=== PATIENT | male | born 1985 | race Caucasian/White ===

== ENCOUNTER 2022-02-02 21:19 | Emergency (ER) | payer SELFPAY ==
[2022-02-02] VITALS (16 sets, daily range): BP systolic 119–132; BP diastolic 69–82; PULSE 72–101; RESP 9–24; TEMP 36.5–36.8; O2SAT 98–100
--- NOTE | 2022-02-02 21:15 | RT.EKG_ITS ---
APPROVED REPORT Exam: Resting ECG Reason for Exam: ?seizure Patient Location: E HR:78 bpm ECG Measurements Heart Rate 78 AXIS ME 148 P 40 QRSd 93 QRS 53 QT 366 T 45 QTc 418 Conclusion Sinus rhythm...normal P axis, V-rate 60- 99. Sinus. Normal axis. No STEMI. I have reviewed and interpreted ECG and agree with software generated interpretation.
--- NOTE | 2022-02-02 21:30 | DI.CT_ITS ---
Exam(s) CT HEAD WO EXAM: CT HEAD WO CLINICAL HISTORY: ? seizure TECHNIQUE: COMPARISON: No exams were available for comparison FINDINGS: Noncontrast cranial CT was performed. There is no evidence of acute intracranial hemorrhage, mass ef fect, or midline shift. The ventricular system is normal in appearance. The there is reportedly history of recent onset of seizures. I would note that there is possible are a of focal encephalomalacia versus arachnoid cyst of the medial aspect of the left temporal lobe, giv en the history of seizure, additional evaluation with brain MRI would be requested to evaluate the po ssibility of mesial temporal sclerosis or other focal anatomic abnormality. The orbital and temporal bone structures appear intact. The paranasal sinuses and mastoid air cells are clear. IMPRESSION: Question left temporal lobe anatomic defect versus arachnoid cyst. Correlation with brain MRI recomm ended utilizing ???seizure protocol??? RADIATION DOSE DELIVERED: 729.75mGy.cm Total DLP DATA REPOSITORY: All CT scans at this facility are submitted to the National Radiology Data Registry (NRDR) Dose Index Registry (DIR) with the [employer] (ACR). RADIATION OPTIMIZATION: All CT scans at this facility use at least one of these dose optimization te chniques: automated exposure control; mA and/or kV adjustment per patient size (includes targeted exa ms where dose is matched to clinical indication); or iterative reconstruction.
[2022-02-02 21:47] LABS: Abs Immature Grans 0.07 10^3/uL (0.0-0.06); Absolute Lymphocyte Count 1.42 10^3/uL (1.2-3.4); Basophils % 0.5; Eosinophils % 0.3; HCT 45.9 % (40.0-50.0); HGB 16.2 g/dL (13.5-17.5); Immature Grans % 0.5; Lymphocytes % 9.4; MCH 32.4 pg (27.0-33.0); MCHC 35.3 % (32.0-36.0); MCV 92 fL (80-95); MPV 11.2 fL (8.0-11.0); Monocytes % 4.6; Neutrophils % 84.7; Platelet Count 205 10^3/uL (130-400); RDW 11.4 % (11.8-14.1); RDW-SD 38.5 fL; WBC 15.13 10^3/uL (4.4-10.8)
[2022-02-02 21:48] LABS: Absolute Basophil Count 0.08 10^3/uL (0.0-0.2); Absolute Eosinophil Count 0.05 10^3/uL (0.0-0.7); Absolute Neutrophil Count 12.82 10^3/uL (1.2-6.7)
--- NOTE | 2022-02-02 21:51 | ED.GENADUL_ITS ---
Discharge Plan Disposition Patient Disposition: Home Condition: Stable Discharge Details Clinical Impression: Brief loss of consciousness, Hypomagnesemia Primary Care Provider: Gail,Local ED Provider: Elisha Childs Home Meds and New Rx's Prescriptions: No Action esomeprazole magnesium [Nexium] 40 mg capsule,delayed release(DR/EC) 40 mg PO DAILY montelukast [Singulair] 10 mg tablet 10 mg PO DAILY baclofen 5 mg tablet 5 mg PO DAILY naproxen sodium [Aleve] 220 mg capsule 220 mg PO BID PRN Discharge Instructions Instructions: Hypomagnesemia (ED), New-Onset Seizure in Adults (ED) Additional Instructions: As we discussed, I am concerned that you may have suffered a syncopal episode associated with your elevated heart rate after smoking marijuana. Alternatively, this could have been a true seizure but is difficult to say at this time given your quick recovery and lack of symptoms here. As we discussed, there is a questionable area of scarring on your CT scan which may require MRI in the future. This will be described by neurology physician. Please abstain from further marijuana use. Please do not drive until you are cleared by neurology. Please try to keep yourself safe and stay out of bodies of water, avoid high risk activities that may cause injury to if you were to suffer from another event. Please encourage hydration. Encourage brain rest. I have asked our care management team to call you on Saturday to schedule follow-up appointment with neurology. We are sending you home with copy of your imaging in the event that the neurology follow-up is not with one of our local neurology clinicians. If you develop fever/chills, headaches, recurrent episodes, focal area of weakness or other new/worsening symptom please seek care urgently once again. Stand Alone Forms: Work Release Discharge Data Discharge Date/Time-TO BE ENTERED AT DEPARTURE: 02/03/22 00:00 Medical Decision Making Patient is a pleassant 37 year old male, brought in via EMS, with c/c of possible seizure. He states that he was sitting in his significant other's car, feeling well leading up to event, when he had what was described as 30 seconds of generalized shaking while he was unconscious. Signficant other reports about 1min of confusion after seizure. He states this happened just a few minutes after smoking marijuana. States that he has not had issue like this previously. Does not typically smoke. Did have lightheaded sensation prior to the event. No CP or palpitations. Has on a Apple watch which did show a brief spike in HR that last short period of itme and then resolved. Did not fall, was seated during event. No head trauma recently or with the event. Denies recent fevers/chills, ALEMAN, visual changes, neck pain/stiffness, rash, change in bowel or bladder habits. No recent medication changes. On exam, patient appear nontoxic. He has normal ENT exam with no tongue biting. Was not incontinent. No evidence of trauma. Neuro exam is intact at this time. No nuchal rigidity or evidence of bacterial infection. Patient appears to be back to baseline, good mentation and intact exam. With thee very brief postical period and prodromal symptoms, I am wondering if this was more of a syncopal episode and may have been associated with his use of marijuana. However, as there was concern for seizure and we cannot otherwise r/o, I do feel that evaluation for possible first time seizure would be appropriate. Will also consider syncopal causes. Description more conssistent with vagal mediated syncope over cardiac. ECG WNL. No evidence of ischemia or cardiac causes of syncope FINDINGS: Brain: The IACs are grossly normal. No extra-axial fluid collections. No evidence of acute intracranial hemorrhage. No CT evidence of large territory acute or subacute intracranial ischemia/infarct. No intracranial mass lesions. No midline shift or herniation. No focal cortical abnormalities suspicious for focal cortical dysplasia are evident by CT. No gross cole matter heterotopia is identified. Asymmetric cortical atrophy in the left mesial temporal distribution may indicate changes of mesial temporal sclerosis, consider nonemergent pre and postcontrast MRI for further characterization. Cerebral ventricles: Ventricles normal. Pituitary gland and sella: The sella is grossly normal. Paranasal sinuses: Visualized paranasal sinuses are clear. Mastoid air cells: Visualized mastoid air cells are clear. Orbital cavities: Visualized orbital contents demonstrate no acute abnormality. Bones/joints: The calvarium and visualized facial bones are intact. Soft tissues: The scalp and visualized soft tissues demonstrate no acute abnormality. Vasculature: The visualized major intracranial arterial segments demonstrate no gross abnormality by noncontrast CT. No asymmetric vascular hyperdensities suggestive of thrombosis are identified. Other findings: Hendricks-white differentiation is well maintained. CBC signficant for elevated WBC. This is more likely associated with stress response, no evidence to suggest infectious etiology. Mag slightly low but electrolytes otherwise wNL. Will replenish. Discussed findings, including the insidental findings on CT. Advised he will need MRI which can be arranged as outpatient. Will refer to neurology for continued management and evaluation of possible seizure. Advised not to drive. Advised on return precatuions. advised he abstain from marijuana. All of his questions and concerns were addressed, he si in agreement with this plan. Sign Out No HPI General Date/Time Provider Initiated Documentation: 02/02/22 21:24 . Limitations to Documentation: no limitations . Information obtained by: patient, EMS and RN notes reviewed . History of Present Illness 37 year old M presents to the emergency department with the chief complaint of seizure/syncopal episode witnessed by signficant other, currently asymptoma, described as severe, Patient started experiencing this minute(s) and it has been now resolved (witnessed event x 30 second). No relieving factors improve symptom(s), Other factors that worsen symptoms (occured a few minutes after smoking marijuana) . Patient notes seizure; denies confusion, chest pain, cough, fever/chills, headaches, nausea/vomiting, rash and shortness of breath. Patient did receive the following treatments prior to arrival, none Related Data Home Medications Medication Instructions Recorded Confirmed baclofen 5 mg tablet 5 mg PO DAILY 02/15/22 02/15/22 esomeprazole magnesium 40 mg 40 mg PO DAILY 02/15/22 02/15/22 capsule,delayed release (Nexium) montelukast 10 mg tablet 10 mg PO DAILY 02/15/22 02/15/22 (Singulair) naproxen sodium 220 mg capsule 220 mg PO BID PRN 02/15/22 02/15/22 (Aleve) Allergies Allergy/AdvReac Type Severity Reaction Status Date / Time egg yolk AdvReac Anaphylaxis Verified 02/15/22 13:28 peanuts AdvReac Severe Anaphylaxis Uncoded 02/15/22 13:28 General Stated Complaint: Seizure CLARE: 3 Review of Systems Constitutional Constitutional: Reports as per HPI, Denies chills, Reports fatigue, Denies fever(s), Denies frequent falls and Denies weakness Eyes Eyes: Reports as per HPI, Denies blurry vision, Denies change in vision and Reports photophobia ENT Ears, Nose, Mouth, and Throat: Denies vertigo and Denies neck pain Cardiovascular Cardiovascular: Reports as per HPI, Denies chest pain, Denies radiating jaw, n markus or arm pain, Denies dyspnea and Denies dyspnea on exertion Respiratory Respiratory: Reports as per HPI, Denies chest congestion, Denies cough, Denies dyspnea and Denies dyspnea on exertion Gastrointestinal Gastrointestinal: Reports as per HPI, Denies abdominal pain, Denies change in bowel habits, Denies nausea and Denies vomiting Genitourinary Genitourinary: Reports system reviewed and no additional complaints, except as documented (denies change in urinary habits) Musculoskeletal Musculoskeletal: Reports as per HPI, Denies back pain, Denies myalgias, Denies muscle cramps, Denies neck pain and Denies numbness Integumentary/Breasts Skin/Breast: Reports as per HPI and Denies rash Neurologic Neurologic: Reports as per HPI, Denies abnormal movements, Denies abnormal speech, Denies behavioral changes, Denies confusion, Denies vertigo, Denies frequent falls, Denies localized weakness, Denies numbness, Denies sensory deficit and Denies weakness Psychiatric Psychiatric: Denies behavioral changes and Denies confusion Endocrine Endocrine: Reports fatigue PFSH All Active Problems Seizure (Acute) Medical History Asthma Back pain GERD (gastroesophageal reflux disease) Surgical History No pertinent past surgical history Family History Father Hypertension Mother Hypertension Social History Smoking/Tobacco Use Status: Current every day Tobacco Type: e-cigarettes Tobacco: How many years used: 10 Smokeless tobacco user: dissolvable tobacco Smoking risk assessment performed?: Yes Alcohol Intake: current Alcohol Intake frequency: a few times a month Alcohol type: wine Drug use: Rarely Substance use type: marijuana Household members: none Number of Children: 0 current occupation: Travel Nurse Do you feel safe at home: Yes Do you feel safe in your relationship?: Yes Exam Const General: cooperative, healthy appearing, comfortable, no acute distress, well developed, well groomed and anxious Nutritional Appearance: average body habitus and well nourished Orientation: alert, awake and oriented x3 [facility] Head: normal to inspection, no palpable skull fracture, normocephalic and atraumatic Ears: hearing grossly normal bilaterally, external ears normal and TM's normal bilaterally General nose exam: external nose normal Mouth: oral mucosae normal and moist mucous membranes Throat: posterior oropharynx normal Eyes General: appearance normal, both eyes and all related structures Alignment and Position: alignment normal Periorbital: periorbital findings normal Eyelids: eyelids normal Sclera: sclerae normal Cornea: corneas normal Pupils: PERRL EOM: EOM intact bilaterally Neck Neck: normal visual inspection, full ROM, no lymphadenopathy and no meningeal signs Resp Effort & Inspection: normal respiratory effort, able to speak in complete sentences and no respiratory distress Auscultation: clear to auscultation bilaterally, no rales, no rhonchi and no wheezes Cardio Rate: regular rate Rhythm: regular rhythm Heart Sounds: S1 normal and S2 normal GI Inspection: normal to inspection and non-distended Palpation: soft, no hepatosplenomegaly, not firm, no guarding, not rigid and nontender Percussion: normal to percussion Auscultation: normal bowel sounds Back/Spine/Pelvis Cervical Spine: normal cervical lordosis and cervical ROM normal Skin General skin exam: no rashes or lesions noted Neuro General: patient alert, patient awake and patient oriented x3 Cranial Nerves: CN's II-XI intact bilaterally Cognition: normal cognition Speech: speech normal Gait: normal gait Motor: muscle tone normal throughout, strength 5/5 throughout, no pronator drift, no movement abnormalities noted and no fasciculations Sensory Exam: no sensory deficits noted DTR's: Rt Triceps: 2+, Lt Triceps: 2+, Rt Biceps: 2+, Lt Biceps: 2+, Rt Brachioradialis: 2+, Lt Brachioradialis: 2+, Rt Patellar: 2+ and Lt Patellar: 2+ Coordination: [id number] test normal and [id number]-[id number] test normal Extrem General: normal to inspection, capillary refill normal, no pedal edema and no calf tenderness Psych Appearance: grossly normal and well kempt Mental Status: mental status grossly normal Speech and Movement: speech and movement normal Course Vital Signs Vital signs: Vital Signs Temperature 36.8 C 02/02/22 21:23 Pulse 101 H 02/02/22 21:23 Respiratory Rate 16 02/02/22 21:23 Blood Pressure 130/73 02/02/22 21:23 Pulse Oximetry 99 02/02/22 21:23 Temperature 36.8 C 02/02/22 21:23 Temperature Source Temporal Artery Scan 02/02/22 21:23 Pulse 101 H 02/02/22 21:23 Respiratory Rate 16 02/02/22 21:23 Respiratory Effort Non-Labored 02/02/22 21:35 Respiratory Depth Normal 02/02/22 21:35 Respiratory Pattern Normal 02/02/22 21:35 Blood Pressure 130/73 02/02/22 21:23 Blood Pressure Position Supine 02/02/22 21:23 Pulse Oximetry 99 02/02/22 21:23 Oxygen Delivery Method Room Air 02/02/22 21:23 Oxygen Flow Rate 0 02/02/22 21:23 Pain Level 0 02/02/22 21:23 Comment 02/02/22 21:23 Lab/Test Results Lab/Test Results: Laboratory Tests Range/Units 02/02/22 21:20 WBC (4.4-10.8) 10^3/uL 15.13 H RBC (4.36-5.78) 10^6/uL 5.00 Hgb (13.5-17.5) g/dL 16.2 Hct (40.0-50.0) % 45.9 MCV (80-95) fL 92 MCH (27.0-33.0) pg 32.4 MCHC (32.0-36.0) % 35.3 RDW (11.8-14.1) % 11.4 L Plt Count (130-400) 10^3/uL 205 MPV (8.0-11.0) fL 11.2 H Immature Gran % 0.5 Neutrophils % 84.7 Lymphocytes % 9.4 Monocytes % 4.6 Eosinophils % 0.3 Basophils % 0.5 Nucleated RBC % (0.0-0.3) % 0.0 Absolute Neutrophils (1.2-6.7) 10^3/uL 12.82 H Absolute Lymphocytes (1.2-3.4) 10^3/uL 1.42 Absolute Monocytes (0.1-0.8) 10^3/uL 0.70 Absolute Eosinophils (0.0-0.7) 10^3/uL 0.05 Absolute Basophils (0.0-0.2) 10^3/uL 0.08 PAWSS Have you Been Recently Intoxicated or Drunk Within the Last 30 days?: No Have you Ever Experienced Previous Episodes of Alcohol Withdrawal?: No Have you ever Experienced Withdrawal Seizures?: No Have you ever Experienced Delirium Tremens(DT)s?: No Have you ever undergone Alcohol Rehabilitation Treatment (i.e, inpt ot outpatient treatment programs)?: No Have you ever Experienced Blackouts?: No Have you ever Combined Alcohol with other Downers within the last 90 days?: No Have you ever Combined Alcohol with any other Substance of Abuse during the last 90 days?: No Positive Blood Alcohol level on Presentation? [PCS.BAL]: No Evidence of Increased Autonomic Activity (i.e. HR>120, tremor, sweating, agitation, nausea)?: No Result: 0
[2022-02-02 22:14] LABS: ALT 27 U/L (16-63); AST 11 U/L (15-37); Albumin 4.1 g/dL (3.4-5.0); Alkaline Phosphatase 50 U/L (46-116); Anion Gap 8.2 mmol/L (3-11); BUN 19 mg/dL (7-18); Bilirubin, Total 1.4 mg/dL (0.2-1.0); CO2 28.8 mmol/L (21.0-32.0); CREATININE 1.1 mg/dL (0.70-1.30); Calcium 8.9 mg/dL (8.5-10.1); Chloride 102 mmol/L (98-107); Estimated GFR 89.78 (mL/min/1.73m2); Glucose 178 mg/dL (74-106); Magnesium 1.6 mg/dL (1.8-2.4); Potassium 3.5 mmol/L (3.5-5.1); Sodium 139 mmol/L (136-145); Total Protein 6.8 g/dL (6.4-8.2)
--- NOTE | 2022-02-02 23:18 | DI.VRAD_ITS ---
PROCEDURE INFORMATION: Exam: CT Head Without Contrast Exam date and time: 02/02/2022 11:00 PM Age: 37 years old Clinical indication: Other: ? Seizure TECHNIQUE: Imaging protocol: Computed tomography of the head without contrast. Radiation optimization: All CT scans at this facility use at least one of these dose optimization techniques: automated exposure control; mA and/or kV adjustment per patient size (includes targeted exams where dose is matched to clinical indication); or iterative reconstruction. COMPARISON: No relevant prior studies available. FINDINGS: Brain: The IACs are grossly normal. No extra-axial fluid collections. No evidence of acute intracranial hemorrhage. No CT evidence of large territory acute or subacute intracranial ischemia/infarct. No intracranial mass lesions. No midline shift or herniation. No focal cortical abnormalities suspicious for focal cortical dysplasia are evident by CT. No gross cole matter heterotopia is identified. Asymmetric cortical atrophy in the left mesial temporal distribution may indicate changes of mesial temporal sclerosis, consider nonemergent pre and postcontrast MRI for further characterization. Cerebral ventricles: Ventricles normal. Pituitary gland and sella: The sella is grossly normal. Paranasal sinuses: Visualized paranasal sinuses are clear. Mastoid air cells: Visualized mastoid air cells are clear. Orbital cavities: Visualized orbital contents demonstrate no acute abnormality. Bones/joints: The calvarium and visualized facial bones are intact. Soft tissues: The scalp and visualized soft tissues demonstrate no acute abnormality. Vasculature: The visualized major intracranial arterial segments demonstrate no gross abnormality by noncontrast CT. No asymmetric vascular hyperdensities suggestive of thrombosis are identified. Other findings: Hendricks-white differentiation is well maintained. IMPRESSION: 1. No acute intracranial process. No intracranial hemorrhage or mass effect. 2. 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 Consider nonemergent evaluation with pre and postcontrast MRI of the brain for greater specificity. Dictated and Authenticated by: Zane Cannon MD. Ordering:MAREK Tello MD
[2022-02-02 23:55] LABS: Bilirubin Negative (Negative); Blood Negative (Negative); Clarity Clear (Clear); Glucose 100 mg/dL (Negative); Ketones Negative (Negative); Leukocyte Esterase Negative (Negative); Nitrite Negative (Negative); Urobilinogen 0.2 EU/dL (Up TO 0.2)
[2022-02-03 00:13] LABS: *AMPHETAMINES SCREEN URINE Negative (Negative); *BARBITURATES SCREEN URINE Negative (Negative); *BENZODIAZEPINES SCREEN URINE Negative (Negative); Cannabinoids THC Positive (Negative); Cocaine Screen,Urine Negative (Negative); METHADONE URINE SCREEN Negative (Negative); OPIATES URINE SCREEN Negative (Negative)
[2022-02-03 00:15] LABS: Tricyclic Antidepressants Negative (Negative)
--- NOTE | 2022-02-03 00:48 | NUR.NOTE ---
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 The provider asked that Care Management call the patient as he is paying out of pocket and to determine where he would like to be seen in follow up.Nursing Note:
--- NOTE | 2022-02-06 15:32 | PDOC.ERCMACT ---
- If Service Date Differs Date of service: 02/06/22 Time of Service: 15:32 Care Management Activity Note Peyman is seen in the ED for new onset seizures. At the request of ED provider, SHILOH telephones Peyman to inquire where he would like referrals sent. He requests that referrals be faxed to both [facility]rology and [facility] Neurology.
== END 2022-02-03 | disposition home or self-care (01) ==
LOC: ER 02-03 00:17
PROVIDERS: Emergency Provider Physician Assistant
DX: E83.42 Hypomagnesemia (principal); R55 Syncope and collapse; D72.829 Elevated white blood cell count, unspecified; J45.909 Unspecified asthma, uncomplicated
CPT/HCPCS: 80053; 80307; 93005; 99284; 70450; 81003; 83735; 84443; 85025; 93010; 99285

== ENCOUNTER 2022-03-01 04:49 | Outpatient (CLI) | payer SELFPAY ==
--- NOTE | 2022-03-08 11:14 | PDOC.EEG_ITS ---
Neurology EEG EEG: [facility] Department of Neurology LONG-TERM AMBULATORY EEG REPORT Date of Recordin03/01/22 at 13:17:19 to 03/02/22 at 14:16:07 Interpreting Physician: Dr. Kacy Hess PCP/Referring Provider: Dr. Richard Mendez Reason for study: Mr. Su had a single syncopal vs seizure event with noted L temporal abnormalities on brain MRI. Current Medications: Home Medications Medication Instructions Recorded Confirmed Type baclofen 5 mg tablet 5 mg PO DAILY 02/15/22 02/15/22 History esomeprazole magnesium 40 mg 40 mg PO DAILY 02/15/22 02/15/22 History capsule,delayed release (Nexium) montelukast 10 mg tablet 10 mg PO DAILY 02/15/22 02/15/22 History (Singulair) naproxen sodium 220 mg capsule 220 mg PO BID PRN 02/15/22 02/15/22 History (Aleve) METHODS: An 18-channel digitized electroencephalogram was recorded in the ambulatory setting with video. The 10/20 international system of electrode placement was used and bipolar and referential electrode montages were recorded. In addition to EEG the patient was monitored for EKG and by video. Activation procedures of photic stimulation and hyperventilation were performed if applicable. The duration of the recording was ~25 hours. DESCRIPTION OF EEG: Waking background activity: During maximal wakefulness a 9-Hz posterior background rhythm was present which was well-modulated, symmetrical, reactive to eye opening, and of moderate voltage. Faster frequencies were present in the bilateral anterior head regions. There was a normal anterior-posterior voltage gradient. Drowsy and sleeping background activity: During drowsiness, there was attenuation of the posterior dominant background rhythm and vertex waves. Normal stage II and III sleep was present with symmetrical sleep spindles, K- complexes, and vertex waves with slowing of the background rhythm to delta/theta frequencies. REM sleep manifested by rapid lateral eye movements and faster background rhythms was recorded. Arousal was unremarkable. Interictal abnormalities: none. Ictal findings: No events recorded. Activating Procedures: Photic stimulation was performed which produced no posterior driving response. Hyperventilation was performed with moderate effort and produced no physiological slowing of the background. EKG: EKG revealed normal sinus rhythm. INTERPRETATION: This long-term EEG is normal during the awake and sleep states as well as during the activation procedures. PRIOR EEG: none CLINICAL CORRELATION: No focal regions of cerebral dysfunction or epileptiform activity was present. Epilepsy remains a clinical diagnosis and a normal EEG does not rule out epilepsy. Clinical correlation is advised. Kacy Hess MD
== END 2022-03-01 04:50 | disposition home or self-care (01) ==
LOC: RT 04:50
PROVIDERS: Visit Provider Psychiatry & Neurology Neurology
DX: R41.89 Other symptoms and signs involving cognitive functions and awareness (principal)
CPT/HCPCS: 95714

== ENCOUNTER 2023-02-13 10:27 | Outpatient (CLI) | payer SELFPAY ==
[2023-02-13 12:24] LABS: Abs Immature Grans 0.02 10^3/uL (0.0-0.06); Absolute Basophil Count 0.06 10^3/uL (0.0-0.2); Absolute Eosinophil Count 0.08 10^3/uL (0.0-0.7); Absolute Neutrophil Count 10.07 10^3/uL (1.2-6.7); Basophils % 0.5; Eosinophils % 0.7; HGB 16.1 g/dL (13.5-17.5); Immature Grans % 0.2; Lymphocytes % 6.4; MCH 31.9 pg (27.0-33.0); MCV 91 fL (80-95); MPV 11.5 fL (8.0-11.0); Monocytes % 6.8; Neutrophils % 85.4; Platelet Count 161 10^3/uL (130-400); RBC 5.04 10^6/uL (4.36-5.78); RDW 11.8 % (11.8-14.1); RDW-SD 39.4 fL; WBC 11.79 10^3/uL (4.4-10.8)
[2023-02-13 12:27] LABS: Anion Gap 7.1 mmol/L (3-11); BUN 10 mg/dL (7-18); CO2 29.9 mmol/L (21.0-32.0); CREATININE 1.1 mg/dL (0.70-1.30); Calcium 9.3 mg/dL (8.5-10.1); Chloride 103 mmol/L (98-107); Estimated GFR 89.22 (mL/min/1.73m2); Glucose 135 mg/dL (74-106); Potassium 4.2 mmol/L (3.5-5.1); Sodium 140 mmol/L (136-145)
[2023-02-13 12:29] LABS: Absolute Lymphocyte Count 0.75 10^3/uL (1.2-3.4)
[2023-02-13 12:54] LABS: D-Dimer 167 ng/mlFEU (<500)
== END 2023-02-13 10:28 | disposition home or self-care (01) ==
LOC: LOS 10:27
PROVIDERS: Visit Provider Nurse Practitioner Family
DX: J02.9 Acute pharyngitis, unspecified (principal)
CPT/HCPCS: 36415; 80048; 85025; 85379

== ENCOUNTER 2023-09-09 15:33 | Outpatient (REF) | payer SELFPAY ==
[2023-09-10 19:47] LABS: HIV-1/2 Ag & Ab Screen Negative (Negative)
[2023-09-10 19:48] LABS: Hepatitis C Ab w Rflx HCV PCR Negative (Negative)
[2023-09-11 10:12] LABS: HSV Type 1 Ab, IgG Positive (Negative); HSV Type 2 Ab, IgG Negative (Negative)
[2023-09-11 12:14] LABS: Syphilis Serology (RPR) Negative (Negative)
[2023-09-11 14:29] LABS: Chlamydia Result Negative (Negative); GC Result Negative (Negative)
== END 2023-09-09 15:34 | disposition home or self-care (01) ==
LOC: LBN 15:33
PROVIDERS: Visit Provider Nurse Practitioner Family
DX: Z20.2 Contact with and (suspected) exposure to infections with a predominantly sexual mode of transmission (principal); Z11.3 Encounter for screening for infections with a predominantly sexual mode of transmission
CPT/HCPCS: 86803; 87389; 87491; 87591; 86592; 86695; 86696

== ENCOUNTER 2023-12-19 10:12 | Emergency (ER) | payer SELFPAY ==
[2023-12-19] VITALS (13 sets, daily range): BP systolic 128–153; BP diastolic 62–113; PULSE 66–80; RESP 16–20; TEMP 36.9; O2SAT 94–99
[2023-12-19 10:34] LABS: Abs Immature Grans 0.05 10^3/uL (0.0-0.06); Absolute Eosinophil Count 0.05 10^3/uL (0.0-0.7); Absolute Monocyte Count 0.51 10^3/uL (0.1-0.8); Basophils % 0.5 %; Eosinophils % 0.4 %; HGB 16.2 g/dL (13.5-17.5); Immature Grans % 0.4 %; Lymphocytes % 13.2 %; MCHC 35.2 % (32.0-36.0); MCV 91 fL (80-95); MPV 10.3 fL (8.0-11.0); Neutrophils % 81.5 %; Platelet Count 214 10^3/uL (130-400); RBC 5.07 10^6/uL (4.36-5.78); RDW 11.2 % (11.8-14.1); RDW-SD 37.5 fL; WBC 12.76 10^3/uL (4.4-10.8)
[2023-12-19 10:39] LABS: Absolute Basophil Count 0.06 10^3/uL (0.0-0.2); Absolute Lymphocyte Count 1.68 10^3/uL (1.2-3.4)
--- NOTE | 2023-12-19 10:45 | DI.CT_ITS ---
Exam(s) CT RENAL COLIC WO EXAM: CT RENAL COLIC WO CLINICAL HISTORY: bilateral flank pain since 730, prior renal stones. TECHNIQUE: Imaging Protocol: Axial computed tomography images with coronal and sagittal reformatted images were created and reviewed. COMPARISON: No exams were available for comparison FINDINGS: Lung Bases: Normal where visualized. Small hiatal hernia. Liver: Normal density. No measurable mass. Gallbladder and biliary tract: No radiodense calculus. No biliary ductal dilation. Pancreas: No abnormal calcifications or inflammatory process. Spleen: Normal size. Kidneys: Normal size, contour and axis.There are 2 stones in the right upper ureter, the more proxima l measuring 7 millimeters. The 2nd stone is located approximately 1 cm distal which measures 5 pretty meters. There is [id number] right hydronephrosis. Additional punctate calculi are noted bilat erally. No masses seen. Adrenal glands: No mass is seen. Lymph nodes: Within normal limits. Vasculature: Abdominal aorta non-dilated. Bladder:No stone. No gross wall thickening. No evidence of mass. Bowel: No obstruction. No bowel wall thickening. Normal appendix. Peritoneal cavity: No ascites.No free air. No focal collection. No mesenteric inflammatory response. Reproductive organs: Within normal limits. Bones: Unremarkable for age. Soft Tissues: Small left fat containing inguinal hernia. IMPRESSION: Two stones in the upper right ureter measuring 7 and 5 millimeters causing [id number] right hyd ronephrosis. A few additional bilateral punctate nonobstructing renal calculi are noted. RADIATION DOSE DELIVERED: 500.23mGy.cm Total DLP 500.23mGy.cm Total DLP DATA REPOSITORY: All CT scans at this facility are submitted to the National Radiology Data Registry (NRDR) Dose Index Registry (DIR) with the [employer] (ACR). RADIATION OPTIMIZATION: All CT scans at this facility use at least one of these dose optimization te chniques: automated exposure control; mA and/or kV adjustment per patient size (includes targeted exa ms where dose is matched to clinical indication); or iterative reconstruction.
[2023-12-19 10:46] LABS: Lipase 34 U/L (16-77)
--- NOTE | 2023-12-19 10:47 | W.ED.GENAD ---
Discharge Plan Disposition Patient Disposition: Home Condition: Stable Discharge Details Clinical Impression: Ureteral calculus, right Primary Care Provider: None,None ED Provider: Antonio Gonzalez Home Meds and New Rx's Prescriptions: New tamsulosin [Flomax] 0.4 mg capsule 0.4 mg PO DAILY Qty: 30 0RF Continued esomeprazole magnesium [Nexium] 40 mg capsule,delayed release(DR/EC) 40 mg PO DAILY montelukast [Singulair] 10 mg tablet 10 mg PO DAILY naproxen sodium [Aleve] 220 mg capsule 220 mg PO BID PRN albuterol-budesonide 90-80 mcg/actuation HFA aerosol inhaler 2 inh inhalation TID PRN Rx Instructions: as a single dose; may repeat up to 6 doses per day (12 inhalations) No Action prochlorperazine maleate 5 mg tablet 5 mg PO ONCE PRN hydrocodone-acetaminophen 5-325 mg tablet 1 tab PO Q6H MDD 4 PRN (Reason: pain) Qty: 20 0RF Discharge Instructions Instructions: How to Strain Your Urine, Kidney Stone, Adult ED Additional Instructions: Take ibuprofen or Aleve for pain. Dose according to label. Please take acetaminophen (tylenol) - 650mg every 6 hours by mouth as needed for pain. Take morphine IR as prescribed only for severe pain that is refractory to Tylenol and ibuprofen or Aleve. Please follow-up with urology. Call to schedule follow-up appointment. Please contact your primary care physician to arrange follow-up. Return to the ER immediately for any worsening or new concerning symptoms. Referrals: David Warren MD [ [facility] STAFF PHYSICIAN] - Discharge Data Discharge Date/Time-TO BE ENTERED AT DEPARTURE: 12/19/23 15:37 HPI General Mode of arrival: EMS. Date/Time Provider Initiated Documentation: 12/19/23 10:20. Limitations to Documentation: no limitations. Information obtained by: patient and EMS. HPI Narrative: 38-year-old male with history of renal stones here with bilateral flank pain that started suddenly at 730 this morning. Pain is severe and feels like prior renal stones that he had about 4 years ago. Patient was given IV acetaminophen as well as IV Zofran by EMS. Patient continues to have severe pain. No associated fever. No dysuria. Related Data Home Medications ?Medication ?Instructions ?Recorded ?Confirmed esomeprazole magnesium 40 mg 40 mg PO DAILY 02/15/22 12/26/23 capsule,delayed release (Nexium) montelukast 10 mg tablet 10 mg PO DAILY 02/15/22 12/26/23 (Singulair) naproxen sodium 220 mg capsule 220 mg PO BID PRN 02/15/22 12/26/23 (Aleve) albuterol 90 mcg-budesonide 80 2 inh inhalation TID PRN 01/11/23 12/26/23 mcg/actuation HFA aerosol inhaler tamsulosin 0.4 mg capsule (Flomax) 0.4 mg PO DAILY #30 caps 12/19/23 12/26/23 hydrocodone 5 mg-acetaminophen 325 1 tab PO Q6H PRN pain #20 tabs 12/24/23 12/26/23 mg tablet prochlorperazine maleate 5 mg 5 mg PO ONCE PRN 12/24/23 12/26/23 tablet Previous Rx's ?Medication ?Instructions ?Recorded tamsulosin 0.4 mg capsule (Flomax) 0.4 mg PO DAILY #30 caps 12/19/23 hydrocodone 5 mg-acetaminophen 325 1 tab PO Q6H PRN pain #20 tabs 12/24/23 mg tablet Allergies Allergy/AdvReac Type Severity Reaction Status Date / Time egg yolk AdvReac Anaphylaxis Verified 12/26/23 13:44 peanuts AdvReac Severe Anaphylaxis Uncoded 12/26/23 13:44 General Stated Complaint: Abd Prob CLARE: 3 Review of Systems All systems reviewed & are unremarkable except as noted in HPI and below Constitutional Constitutional: Denies fever(s) Genitourinary Genitourinary: Reports as per HPI Exam Const General: cooperative and uncomfortable [facility] Head: normocephalic and atraumatic Mouth: moist mucous membranes Eyes Conjunctivae: normal conjunctivae Sclera: normal sclerae EOM: EOM intact bilaterally Neck Neck: trachea midline and supple Resp Auscultation: clear to auscultation bilaterally, no rales, no rhonchi and no wheezes Cardio Jugular venous pressure: no JVD Rate: regular rate and not tachycardic Rhythm: regular rhythm GI Palpation: soft, not firm, no guarding, no masses, not rigid and nontender Skin General skin exam: no rashes or lesions noted Neuro General: patient alert, patient awake, patient oriented x3 and tone normal Extrem General: no edema Psych Appearance: grossly normal Mental Status: mental status grossly normal Speech and Movement: speech and movement normal Course Vital Signs Vital signs: Vital Signs Temperature 36.9 C 12/19/23 10:14 Pulse 80 12/19/23 10:14 Respiratory Rate 20 12/19/23 10:14 Blood Pressure 153/94 H 12/19/23 10:14 Pulse Oximetry 99 12/19/23 10:14 Temperature 36.9 C 12/19/23 10:16 Pulse 80 12/19/23 10:16 Respiratory Rate 20 12/19/23 10:16 Respiratory Effort Normal 12/19/23 10:16 Blood Pressure 153/94 H 12/19/23 10:16 Blood Pressure Position Sitting 12/19/23 10:16 Pulse Oximetry 99 12/19/23 10:16 Oxygen Delivery Method Room Air 12/19/23 10:16 Oxygen Flow Rate 0 12/19/23 10:16 Pain Level 10 12/19/23 10:16 Lab/Test Results Lab/Test Results: Laboratory Tests Range/Units 12/19/23 10:25 WBC (4.4-10.8) 10^3/uL 12.76 H RBC (4.36-5.78) 10^6/uL 5.07 Hgb (13.5-17.5) g/dL 16.2 Hct (40.0-50.0) % 46.0 MCV (80-95) fL 91 MCH (27.0-33.0) pg 32.0 MCHC (32.0-36.0) % 35.2 RDW (11.8-14.1) % 11.2 L Plt Count (130-400) 10^3/uL 214 MPV (8.0-11.0) fL 10.3 Immature Gran % % 0.4 Neutrophils % % 81.5 Lymphocytes % % 13.2 Monocytes % % 4.0 Eosinophils % % 0.4 Basophils % % 0.5 Nucleated RBC % (0.0-0.3) % 0.0 Absolute Neutrophils (1.2-6.7) 10^3/uL 10.40 H Absolute Lymphocytes (1.2-3.4) 10^3/uL 1.68 Absolute Monocytes (0.1-0.8) 10^3/uL 0.51 Absolute Eosinophils (0.0-0.7) 10^3/uL 0.05 Absolute Basophils (0.0-0.2) 10^3/uL 0.06 Medical Decision Making 1049-- 38-year-old male with history of renal stones, here with severe bilateral flank pains at 730 this morning concern for acute ureteral stone. Consider obstructive process. Will give toradol IV and dilaudid IV. Plan for CT of the abdomen pelvis to assess for acute surgical pathology. 1149 -- CT renal interpreted by radiology: Two stones in the upper right ureter measuring 7 and 5 millimeters causing [id number] right hydronephrosis. A few additional bilateral punctate nonobstructing renal calculi are noted. Labs review. UA pending. Patient reassessed and pain improved with analgesic. -- Will hold awaiting urinalysis, patient had recurrent pain. He is given another Dilaudid 1 mg IV. --I spoke with Ankita Hamm, nurse practitioner urology, discussed ED presentation course, she recommends discharge on Flomax with plan for close outpatient follow-up with urology. 1500 --patient reassessed and feeling better, comfortable with discharge. Urinalysis reviewed and is not consistent with UTI. Usual and customary discharge instructions were reviewed. Quality:SDOH Health Related Social Needs: Health related social needs housing instability, housed, with risk of homelessness(Z59.811) PFSH All Active Problems Ureteral calculus, right (Acute) Seizure (Acute) Medical History Asthma GERD (gastroesophageal reflux disease) Back pain Surgical History No pertinent past surgical history Family History Father Hypertension Mother Hypertension Social History Smoking/Tobacco Use Status: Current every day Tobacco Type: e-cigarettes Tobacco: How many years used: 10 Smoking risk assessment performed?: Yes Alcohol Intake: current Alcohol Intake frequency: a few times a month Alcohol type: wine Drug use: Current Sobriety Substance use type: former substance user Household members: none Housing: house Number of Children: 0 current occupation: Travel Nurse Do you feel safe at home: Yes Do you feel safe in your relationship?: Yes
[2023-12-19 10:51] LABS: ALT 49 U/L (16-63); AST 15 U/L (15-37); Alkaline Phosphatase 54 U/L (46-116); Anion Gap 7.9 mmol/L (3-11); BUN 16 mg/dL (7-18); Bilirubin, Total 0.82 mg/dL (0.2-1.0); CO2 26.1 mmol/L (21.0-32.0); CREATININE 1.2 mg/dL (0.70-1.30); Calcium 9.3 mg/dL (8.5-10.1); Chloride 106 mmol/L (98-107); Estimated GFR 80.38 (mL/min/1.73m2); Glucose 136 mg/dL (74-106); Magnesium 1.9 mg/dL (1.8-2.4); Potassium 3.8 mmol/L (3.5-5.1); Sodium 140 mmol/L (136-145)
[2023-12-19] MEDS: Ketorolac 30 MG/ML VIAL IVP (10:52)
[2023-12-19] MEDS: HYDROmorphone 2 MG/ML SYR 1 MG IVP ×2 (10:52→14:00)
[2023-12-19] MEDS: Tamsulosin 0.4 MG CAPCR PO (12:01)
[2023-12-19 14:18] LABS: Bilirubin Small (Negative); Blood Large (Negative); Clarity Sl Cloudy (Clear); Glucose Negative (Negative); Ketones Trace mg/dL (Negative); Leukocyte Esterase Negative (Negative); Nitrite Negative (Negative); Specific Gravity >= 1.030 (1.005-1.025); Urobilinogen 0.2 mg/dL (Up to 0.2); pH 5.5 (5-8)
[2023-12-19 14:34] LABS: RBC >50 HPF (0-2); WBC Negative HPF (0-5)
[2023-12-19 14:35] LABS: Bacteria Few HPF (Negative); C & S Indicated? No; Casts Negative LPF (Negative); Crystals Rare Calcium Oxalate HPF (Negative); Epithelial Cells Negative HPF (Negative); Mucus Heavy (Negative); Other Cells Negative (Negative)
== END 2023-12-19 15:37 | disposition home or self-care (01) ==
PROVIDERS: Emergency Provider Student in an Organized Health Care Education/Training Program
DX: N13.2 Hydronephrosis with renal and ureteral calculous obstruction (principal); F17.290 Nicotine dependence, other tobacco product, uncomplicated
CPT/HCPCS: 80053; 83690; 96374; 96375; 99285; 74176; 81003; 81015; 83735; 85025; 99284; J1171; J1885

== ENCOUNTER 2023-12-21 12:05 | Emergency (ER) | payer SELFPAY ==
[2023-12-21 12:08] VITALS: BP 145/96; PULSE 87; RESP 16; TEMP 36.8; O2SAT 97
--- OUTSIDE RECORDS SUMMARY | 2023-12-21 12:13 | XMS_ITS | Referral Summary ---
Author Organization [facility] Address [address] [place] [id number] Care Team Providers Care Web Production Artist Name Role Phone Unavailable Primary Care Provider Unavailabl e Social History Tobacco Use Types Packs/Day Years Used Date Smoking Tobacco: Never Assessed Sex and Gender Information Value Date Recorded Sex Assigned at Not on file Gender Identity Not on file Sexual Orientation Not on file Plan of Treatment Not on file Procedures Procedure Name Priority Date/Time Associated Diagnosis Comments HEPATITIS C AB W REFLEX TO HCV RNA BY PCR Routine 09/09/2023 15:55 EDT from Last 3 Months or Most Recently Relevant to Health Maintenance Results * HEPATITIS C AB W REFLEX TO HCV RNA BY PCR (09/09/2023 15:55 EDT) Hep C Antibody Negative Negative 09/10/2023 19:43 EDT [facility] Blood VENOUS BLOOD / Unknown 09/09/2023 15:55 EDT 09/10/2023 17:55 EDT Provider Outr Resulting Lab CHEMISTRY & BLOOD GAS ORDERABLES [facility] [address] [place] [address] from Last 3 Months or Most Recently Relevant to Health Maintenance
--- OUTSIDE RECORDS SUMMARY | 2023-12-21 12:13 | XMS_ITS | Encounter Summary ---
Author Organization [facility] Address [address] [place] [address] Care Team Providers Care Biology Intern Name Role Phone Unavailable Primary Care Provider Unavailabl e Encounter Details Date Type Department Care Team (Late st Contact Info) Description 09/10/2023 Lab Requisition [facility] Pathology & Laboratory [facility] - [facility] [address], [place] [id number] Outr Resulting Lab, Provider Social History Tobacco Use Types Packs/Day Years Used Date Smoking Tobacco: Never Assessed Sex and Gender Information Value Date Recorded Sex Assigned at Not on file Gender Identity Not on file Sexual Orientation Not on file documented as of this encounter Plan of Treatment Not on file documented as of this encounter Procedures Procedure Name Priority Date/Time Associated Diagnosis Comments CHLAMYDIA/N. GONORRHOEAE AMPLIFIED NUCLEIC ACID Routine 09/09/2023 15:55 EDT documented in this encounter Results * CHLAMYDIA/N. GONORRHOEAE AMPLIFIED RNA (09/09/2023 15:55 EDT) Neisseria gonorrhoeae Result Negative Negative 09/11/2023 14:24 EDT [facility] Chlamydia trachomatis Result Negative Negative 09/11/2023 14:24 EDT [facility] Urine URINE / Unknown 09/09/2023 1 5:55 EDT 09/10/2023 17:59 EDT Provider Outr Resulting Lab MICROBIOLOGY - GENERAL ORDERABLES [facility] [address] [place], [place] [address] documented in this encounter Visit Diagnoses Not on filedocumented in this encounter
--- OUTSIDE RECORDS SUMMARY | 2023-12-21 12:13 | XMS_ITS | Encounter Summary ---
Author Organization [facility] Address [address] [place] [address] Care Team Providers Care Sample Book Maker Name Role Phone Unavailable Primary Care Provider Unavailabl e Encounter Details Date Type Department Care Team (Late st Contact Info) Description 09/10/2023 Lab Requisition [facility] Pathology & Laboratory Medicine - [facility] [address], [place] [phone] Outr Resulting Lab, Provider Social History Tobacco [...] Procedure Name Priority Date/Time Associated Diagnosis Comments SYPHILIS SEROLOGY Routine 09/09/2023 15: 55 EDT HEPATITIS C AB W REFLEX TO HCV RNA BY PCR Routine 09/09/2023 15:55 EDT HERPES SIMPLEX VIRUS (HSV) TYPE 1 & 2 AB, IGG Routine 09/09/2023 15:55 EDT documented in this encounter Results * SYPHILIS SEROLOGY (09/09/2023 15:55 EDT) Syphilis Serology Negative Negative 09/11/2023 12:08 EDT [facility] Blood VENOUS BLOOD / Unknown 09/09/2023 15:55 EDT 09/10/2023 17:55 EDT Provider Outr Resulting Lab IMMUNOLOGY A ND SEROLOGY ORDERABLES [facility] [address] [place] [address] * HEPATITIS C AB W REFLEX TO HCV RNA BY PCR (09/09/2023 15:55 EDT) Hep C Antibody Negative Negative 09/10/2023 19:43 EDT [facility] Blood VENOUS BLOOD / Unknown 09/09/2023 15:55 EDT 09/10/2023 17:55 EDT Provider Outr Resulting Lab CHEMISTRY & BLOOD GAS ORDERABLES Performing Organization Address City/[facility]/ZIP Co de Phone Number [facility] [address] [place], [place] [phone] * (ABNORMAL) HERPES SIMPLEX VIRUS (HSV) TYPE 1 & 2 AB, IGG (09/09/2023 15:55 EDT) HSV Type 1 Ab, IgG Positive(A) Negative 09/11/2023 10:07 EDT [facility] Comment:Indicates the presen ce of detectable IGG Antibody to HSV1 HSV Type 2 Ab, IgG Negative Negative 09/11/2023 10:07 EDT [facility] Comment: No detectable antibodies to HSV 2 were found. A negative result generally indicates that the patient has not been infected, but does not always rule out acute HSV infection. If clinical exposure to HSV is suspected despite a negative finding a second sample should be collected and tested no less than 4-6 weeks later. Blood VENOUS BLOOD / Unknown 09/09/2023 15:55 EDT 09/10/2023 17:55 EDT Provider Outr Resulting Lab IMMUNOLOGY A ND SEROLOGY ORDERABLES Performing Organization Address [facility]/ZIP Co de Phone Number [facility] [address] [place], [place] [phone] documented in this encounter Visit Diagnoses Not on filedocumented in this encounter
--- OUTSIDE RECORDS SUMMARY | 2023-12-21 12:13 | XMS_ITS | Encounter Summary ---
Author Organization [facility] Address [address] [place] [address] Care Team Providers Care Stock Blender Name Role Phone Unavailable Primary Care Provider Unavailabl e Encounter Details Date Type Department Care Team (Late st Contact Info) Description 09/10/2023 Lab Requisition [facility] Pathology & Laboratory Medicine - [facility] [address], [place] [address] Outr Resulting Lab, Provider Social History Tobacco [...] Procedure Name Priority Date/Time Associated Diagnosis Comments HIV 1/2 ANTIGEN AND ANTIBODY, 4TH GENERATION Routine 09/09/2023 15:55 EDT documented in this encounter Results * HIV 1/2 ANTIGEN AND ANTIBODY, 4TH GENERATION (09/09/2023 15:55 EDT) HIV 1 and 2 Antibody/p24 Antigen, 4th Generation Negative Negative 09/10/2023 19:41 EDT [facility] Comment:If acute HIV-1 infec tion is suspected in a high risk patient, submit plasma specimen for HIV-1 RNA quantitation test. Blood VENOUS BLOOD / Unknown 09/09/2023 15:55 EDT 09/10/2023 17:55 EDT Narrative [facility] - 09/10/2023 19:41 EDT Fourth Generation assay performed on the Siemens Centaur XPT. Provider Outr Resulting Lab IMMUNOLOGY A ND SEROLOGY ORDERABLES [facility] [address] [place] [id number] documented in this encounter Visit Diagnoses Not on filedocumented in this encounter
--- OUTSIDE RECORDS SUMMARY | 2023-12-21 12:13 | XMS_ITS | Clinical Summary ---
Author Organization [facility] Address [address] [place] [address] Care Team Providers Care Munitions Handler Supervisor Name Role Phone Unavailable Primary Care Provider Unavailabl e Social History Tobacco Use Types Packs/Day Years Used Date Smoking Tobacco: Never Assessed Sex and Gender Information Value Date Recorded Sex Assigned at Not on file Gender Identity Not on file Sexual Orientation Not on file Plan of Treatment Health Maintenance Due Date Last Done Comments Hepatitis B Vaccine (1 of 3 - 19+ 3-dose series) 01/03 COVID-19 Vaccine (2022- season) 2022 Hepatitis C Screen Completed 09/09/2023 Procedures Procedure Name Priority Date/Time Associated Diagnosis Comments HEPATITIS C AB W REFLEX TO HCV RNA BY PCR Routine 09/09/2023 15:55 EDT from Last 3 Months or Most Recently Relevant to Health Maintenance Results * HEPATITIS C AB W REFLEX TO HCV RNA BY PCR (09/09/2023 15:55 EDT) Hep C Antibody Negative Negative 09/10/2023 19:43 EDT [facility] Blood VENOUS BLOOD / Unknown 09/09/2023 15:55 EDT 09/10/2023 17:55 EDT Provider Outr Resulting Lab CHEMISTRY & BLOOD GAS ORDERABLES [facility] [address] [place] [address] from Last 3 Months or Most Recently Relevant to Health Maintenance
--- NOTE | 2023-12-21 12:15 | ED.GENADUL_ITS ---
Discharge Plan Disposition Patient Disposition: Home Condition: Stable Discharge Details Clinical Impression: Ureteral calculus, right Primary Care Provider: None,None ED Provider: Diana Holland Home Meds and New Rx's Prescriptions: Continued esomeprazole magnesium [Nexium] 40 mg capsule,delayed release(DR/EC) 40 mg PO DAILY montelukast [Singulair] 10 mg tablet 10 mg PO DAILY baclofen 5 mg tablet 5 mg PO DAILY naproxen sodium [Aleve] 220 mg capsule 220 mg PO BID PRN albuterol-budesonide 90-80 mcg/actuation HFA aerosol inhaler 2 inh inhalation TID PRN Rx Instructions: as a single dose; may repeat up to 6 doses per day (12 inhalations) cyclobenzaprine 10 mg tablet 10 mg PO HS tamsulosin [Flomax] 0.4 mg capsule 0.4 mg PO DAILY Qty: 30 0RF ondansetron 4 mg tablet,disintegrating 4 mg PO Q8H PRNQty: 10 0RF morphine 15 mg tablet 15 mg PO Q6H PRN (Reason: severe pain (scale score 7-10)) Qty: 20 0RF Discharge Instructions Instructions: Kidney Stone, Adult ED Additional Instructions: No significant change noted on the repeat CT. No evidence of urinary tract infection. Please continue to take the previously prescribed medications as directed. Take the nausea medication 20 to 30 minutes prior to eating or drinking anything or taking her additional meds. May also take ibuprofen. Return to the ER for any further vomiting, unable to keep your medications down, fever or inability to urinate. Please call urology first thing Saturday morning. Follow up with primary care provider in 3-5 days if needed. Return to ED sooner if any worsening or concerns. Please take Tylenol or Ibuprofen with food every 4-6 hours as needed for pain and swelling. Thank you for allowing us to care for you today. Referrals: David Warren MD [ [facility] STAFF PHYSICIAN] - 3 days HPI General Mode of arrival: ambulatory . Date/Time Provider Initiated Documentation: 12/21/23 12:10 . Limitations to Documentation: no limitations . Information obtained by: patient, RN notes reviewed and old records reviewed . HPI Narrative: 38-year-old male presents to the ER after being diagnosed with right ureteral kidney stones on with hydronephrosis. He reports that this morning the pain intensified to 9 out of 10 he did take morphine Tylenol which was prescribed to him and tamsulosin pain is not improved. He also reports emesis prior to arrival. He reports he can feel the stone moving lower. He reports urinating last night. History of asthma GERD. Related Data Home Medications ?Medication ?Instructions ?Recorded ?Confirmed baclofen 5 mg tablet 5 mg PO DAILY 02/15/22 12/21/23 esomeprazole magnesium 40 mg 40 mg PO DAILY 02/15/22 12/21/23 capsule,delayed release (Nexium) montelukast 10 mg tablet 10 mg PO DAILY 02/15/22 12/21/23 (Singulair) naproxen sodium 220 mg capsule 220 mg PO BID PRN 02/15/22 12/21/23 (Aleve) albuterol 90 mcg-budesonide 80 2 inh inhalation TID PRN 01/11/23 12/21/23 mcg/actuation HFA aerosol inhaler cyclobenzaprine 10 mg tablet 10 mg PO HS 08/26/23 12/21/23 morphine 15 mg immediate release 15 mg PO Q6H PRN severe pain 12/19/23 12/21/23 tablet (scale score 7-10) #20 tabs ondansetron 4 mg disintegrating 4 mg PO Q8H PRN #10 tabs 12/19/23 12/21/23 tablet tamsulosin 0.4 mg capsule (Flomax) 0.4 mg PO DAILY #30 caps 12/19/23 12/21/23 Previous Rx's ?Medication ?Instructions ?Recorded morphine 15 mg immediate release 15 mg PO Q6H PRN severe pain 12/19/23 tablet (scale score 7-10) #20 tabs ondansetron 4 mg disintegrating 4 mg PO Q8H PRN #10 tabs 12/19/23 tablet tamsulosin 0.4 mg capsule (Flomax) 0.4 mg PO DAILY #30 caps 12/19/23 Allergies Allergy/AdvReac Type Severity Reaction Status Date / Time egg yolk AdvReac Anaphylaxis Verified 12/21/23 12:10 peanuts AdvReac Severe Anaphylaxis Uncoded 12/21/23 12:10 General Stated Complaint: FlankPain CLARE: 3 Review of Systems All systems reviewed & are unremarkable except as noted in HPI and below Gastrointestinal Gastrointestinal: Reports nausea and Reports vomiting Genitourinary Genitourinary: Reports as per HPI and Reports flank pain Exam Narrative Exam Narrative: Constitutional: Alert and oriented x3. Appears stated age. Normal body habitus. Head: Normocephalic, no trauma. Eyes: Pupils PERRL, Red reflex noted, EOM's intact. Eyelids symmetrical without lesions, discharge, or swelling. ENT: Bilateral TM's WNL, External ear normal to inspection, no mastoid TTP, swelling, or erythema, Nasal turbinates WNL, no nasal discharge. Normal dentition, Posterior pharynx WNL, no exudate. Chest: RRR, Normal S1, S2, distal pulses intact. Resp: Lungs clear to auscultation bilaterally, no wheezes, rales, or rhonchi. Abdomen: Soft, non-distended, Normoactive bowel sounds all 4 quads. Musculoskeletal: Normal gait, Moves all 4 extremities without difficulty. Skin: No suspicious rashes or lesions. Capillary refill less than 2 sec. Neurologic: Cranial nerves II-XII intact. Alert and oriented x 3. Motor: No deficits noted. Sensory: Intact bilaterally all 4 extremities. Hematologic/Lymphatic: No ecchymosis, no lymphadenopathy. Course Vital Signs Vital signs: Vital Signs Temperature 36.8 C 12/21/23 12:08 Pulse 87 12/21/23 12:08 Respiratory Rate 16 12/21/23 12:08 Blood Pressure 145/96 H 12/21/23 12:08 Pulse Oximetry 97 12/21/23 12:08 Temperature 36.8 C 12/21/23 12:08 Pulse 87 12/21/23 12:08 Respiratory Rate 16 12/21/23 12:08 Blood Pressure 145/96 H 12/21/23 12:08 Pulse Oximetry 97 12/21/23 12:08 Oxygen Delivery Method Room Air 12/21/23 12:08 Oxygen Flow Rate 0 12/21/23 12:08 Pain Level 9 12/21/23 12:08 Medical Decision Making 38-year-old male presents to the ER after being diagnosed with right ureteral kidney stones on with hydronephrosis. He reports that this morning the pain intensified to 9 out of 10 he did take morphine Tylenol which was prescribed to him and tamsulosin pain is not improved. He also reports emesis prior to arrival. He reports he can feel the stone moving lower. He reports urinating last night. History of asthma GERD. Workup ordered including CBC CMP urinalysis morphine Zofran Toradol and repeat CT without contrast. 1313: On patient reevaluation he reports feeling somewhat better he rates his pain a 5 out of 10. Discussed lab results and CT images. No evidence of UTI. No leukocytosis kidney functions are within normal limits. Does have large blood. Awaiting official result of CT. CT shows 8 x 4 mm kidney stone with hydronephrosis. No significant change from previous imaging. This time I do feel is safe for patient to be discharged home he has no urinary tract infection. Will encourage close follow-up with urology on Saturday morning. Patient does have pain medication at home and nausea medication. This text was generated using Mobile Authenticationation system, please disregard any oddities of phrase or misspellings. Medical Records Medical records reviewed: Yes I reviewed the patient's medical records. Imaging Data Radiologic Study: Imaging: CT Scan Radiologist's impression: Bones/joints: Unremarkable. No acute fracture. Soft tissues: Small umbilical hernia. Sat distension of the right inguinal canal. IMPRESSION: 1. Right hydroureteronephrosis secondary to proximal ureteral stones 2. Additional findings as discussed above. Thank you for allowing us to participate in the ca re of your patient. Dictated and Authenticated by: Whitney Jha MD Lab Data Lab results reviewed: Yes I reviewed the patient's lab results. Labs: Laboratory Tests Range/Units 12/21/23 12/21/23 12:23 12:45 WBC (4.4-10.8) 10^3/uL 10.55 RBC (4.36-5.78) 10^6/uL 5.08 Hgb (13.5-17.5) g/dL 16.1 Hct (40.0-50.0) % 46.5 MCV (80-95) fL 92 MCH (27.0-33.0) pg 31.7 MCHC (32.0-36.0) % 34.6 RDW (11.8-14.1) % 11.1 L Plt Count (130-400) 10^3/uL 211 MPV (8.0-11.0) fL 10.3 Immature Gran % % 0.4 Neutrophils % % 76.7 Lymphocytes % % 15.8 Monocytes % % 5.8 Eosinophils % % 0.7 Basophils % % 0.6 Nucleated RBC % (0.0-0.3) % 0.0 Absolute Neutrophils (1.2-6.7) 10^3/uL 8.10 H Absolute Lymphocytes (1.2-3.4) 10^3/uL 1.67 Absolute Monocytes (0.1-0.8) 10^3/uL 0.61 Absolute Eosinophils (0.0-0.7) 10^3/uL 0.07 Absolute Basophils (0.0-0.2) 10^3/uL 0.06 Sodium (136-145) mmol/L 139 Potassium (3.5-5.1) mmol/L 3.9 Chloride (98-107) mmol/L 104 Carbon Dioxide (21.0-32.0) mmol/L 31.1 Anion Gap (3-11) mmol/L 3.9 BUN (7-18) mg/dL 11 Creatinine (0.70-1.30) mg/dL 1.2 Est GFR (CKD-EPI 2020) (mL/min/1.73m2) 80.38 Glucose (74-106) mg/dL 112 H Calcium (8.5-10.1) mg/dL 9.4 Total Bilirubin (0.2-1.0) mg/dL 2.01 H AST (15-37) U/L 18 ALT (16-63) U/L 48 Alkaline Phosphatase (46-116) U/L 61 Total Protein (6.4-8.2) g/dL 7.2 Albumin (3.4-5.0) g/dL 4.1 Urine Color (Yellow) Yellow Urine Clarity (Clear) Sl Cloudy Urine pH (5-8) 5.5 Ur Specific Carlton (1.005-1.025) 1.015 Urine Protein (Neg-Trace) mg/dL Negative Urine Ketones (Negative) mg/dL Negative Urine Blood (Negative) Large H Urine Nitrite (Negative) Negative Urine Bilirubin (Negative) Negative Urine Urobilinogen (Up to 0.2) mg/dL 0.2 Ur Leukocyte Esterase (Negative) Negative Urine RBC (0-2) HPF 20-50 H Urine WBC (0-5) HPF 0-2 Ur Epithelial Cells (Negative) HPF Rare Urine Crystals (Negative) HPF Negative Urine Bacteria (Negative) HPF Few Urine Mucus (Negative) Moderate Ur Culture Indicated? No Urine Glucose (Negative) mg/dL Negative Quality:SDOH Health Related Social Needs: Health related social needs risk of homeless PFSH All Active Problems (Updated 12/21/23 @ 13:59 by Diana Holland NP) Ureteral calculus, right (Acute) Seizure (Acute) Medical History Asthma GERD (gastroesophageal reflux disease) Back pain Surgical History No pertinent past surgical history Family History Father Hypertension Mother Hypertension Social History Smoking/Tobacco Use Status: Current every day Tobacco Type: e-cigarettes Tobacco: How many years used: 10 Smoking risk assessment performed?: Yes Alcohol Intake: current Alcohol Intake frequency: a few times a month Alcohol type: wine Drug use: Rarely Substance use type: marijuana Household members: none Housing: apartment Number of Children: 0 current occupation: Travel Nurse Do you feel safe at home: Yes Do you feel safe in your relationship?: Yes
--- NOTE | 2023-12-21 12:15 | DI.CT_ITS ---
Exam(s) CT ABDOMEN PELVIS WO EXAM: CT ABDOMEN PELVIS WO CLINICAL HISTORY: Right Flank Pain, hx Kidney stones. TECHNIQUE: Imaging Protocol: Axial computed tomography images with coronal and sagittal reformatted images were created and reviewed. Oral: yes / no COMPARISON: CT CT RENAL COLIC WO from 12/19/2023 FINDINGS: Lung Bases: No acute findings. Liver: Normal density. No suspicious mass. Gallbladder and biliary tract: No radiodense calculus or biliary dilation. Pancreas: Normal density. No abnormal calcifications or inflammatory process. Spleen: Normal. Kidneys: Normal size, contour and axis. No change in position of the 2 stones in the upper left uret er causing the [id number] hydronephrosis. Mild right perinephric stranding, similar to prior. Tiny bilateral tiny nonobstructing stones. No suspicious masses seen. Adrenal glands: No masses seen. Lymph nodes: Within normal limits. Vasculature: Abdominal aorta non-dilated. Soft tissues: Small fat containing left inguinal hernia noted. Bladder: Nearly empty. No wall thickening. No mass or calculi. Bowel: No obstruction or bowel wall thickening. Diverticulosis. Normal appendix. Peritoneal cavity: No ascites. No focal collection. No mesenteric inflammatory response. Reproductive organs: Unremarkable. Bones: Unremarkable for age. IMPRESSION: No change in [id number] right hydronephrosis secondary to 2 stones in the upper right ureter wh ich are unchanged in position. No new abnormalities. RADIATION DOSE DELIVERED: Total DLP DATA REPOSITORY: All CT scans at this facility are submitted to the National Radiology Data Registry (NRDR) Dose Index Registry (DIR) with the [employer] (ACR). RADIATION OPTIMIZATION: All CT scans at this facility use at least one of these dose optimization te chniques: automated exposure control; mA and/or kV adjustment per patient size (includes targeted exa ms where dose is matched to clinical indication); or iterative reconstruction.
[2023-12-21 12:32] LABS: Abs Immature Grans 0.04 10^3/uL (0.0-0.06); Absolute Basophil Count 0.06 10^3/uL (0.0-0.2); Absolute Eosinophil Count 0.07 10^3/uL (0.0-0.7); Absolute Lymphocyte Count 1.67 10^3/uL (1.2-3.4); Absolute Monocyte Count 0.61 10^3/uL (0.1-0.8); Basophils % 0.6 %; Eosinophils % 0.7 %; HCT 46.5 % (40.0-50.0); HGB 16.1 g/dL (13.5-17.5); Immature Grans % 0.4 %; Lymphocytes % 15.8 %; MCH 31.7 pg (27.0-33.0); MCHC 34.6 % (32.0-36.0); MCV 92 fL (80-95); MPV 10.3 fL (8.0-11.0); Monocytes % 5.8 %; Neutrophils % 76.7 %; Platelet Count 211 10^3/uL (130-400); RBC 5.08 10^6/uL (4.36-5.78); RDW 11.1 % (11.8-14.1); RDW-SD 37.7 fL; WBC 10.55 10^3/uL (4.4-10.8)
[2023-12-21] MEDS: MORPHine 4 MG/ML SYR IVP (12:32)
[2023-12-21] MEDS: Ketorolac 15 MG/ML VIAL IVP (12:32)
[2023-12-21] MEDS: Ondansetron 4 MG/2 ML VIAL IVP (12:33)
[2023-12-21 12:46] LABS: ALT 48 U/L (16-63); AST 18 U/L (15-37); Albumin 4.1 g/dL (3.4-5.0); Alkaline Phosphatase 61 U/L (46-116); Anion Gap 3.9 mmol/L (3-11); BUN 11 mg/dL (7-18); Bilirubin, Total 2.01 mg/dL (0.2-1.0); CO2 31.1 mmol/L (21.0-32.0); CREATININE 1.2 mg/dL (0.70-1.30); Calcium 9.4 mg/dL (8.5-10.1); Chloride 104 mmol/L (98-107); Estimated GFR 80.38 (mL/min/1.73m2); Glucose 112 mg/dL (74-106); Potassium 3.9 mmol/L (3.5-5.1); Sodium 139 mmol/L (136-145); Total Protein 7.2 g/dL (6.4-8.2)
[2023-12-21 12:58] LABS: Bilirubin Negative (Negative); Blood Large (Negative); Clarity Sl Cloudy (Clear); Glucose Negative (Negative); Ketones Negative (Negative); Leukocyte Esterase Negative (Negative); Nitrite Negative (Negative); Specific Gravity 1.015 (1.005-1.025); Urobilinogen 0.2 mg/dL (Up to 0.2); pH 5.5 (5-8)
[2023-12-21 13:05] LABS: Bacteria Few HPF (Negative); C & S Indicated? No; Crystals Negative HPF (Negative); Epithelial Cells Rare HPF (Negative); Mucus Moderate (Negative); RBC 20-50 HPF (0-2); WBC 0-2 HPF (0-5)
[2023-12-21 13:08] VITALS: BP 144/88; PULSE 80; RESP 20; TEMP 36.8; O2SAT 98
[2023-12-21] MEDS: MORPHine 10 MG/ML VIAL 2 MG IVP (13:26)
--- NOTE | 2023-12-21 13:35 | DI.VRAD_ITS ---
Addendum created by Whitney Jha MD on 12/21/2023 2:04:05 PM EDT: Prior CT report from December 19, 2023 is become available. There is no signifant change change is the right hydronephrosis and right ureteral stones. Initial report created on 12/21/2023 1:35:17 PM EDT: PROCEDURE INFORMATION: Exam: CT Abdomen And Pelvis Without Contrast Exam date and time: 12/21/2023 1:03 PM Age: 38 years old Clinical indication: Other: Right flank pain, HX kidney stones TECHNIQUE: Imaging protocol: Computed tomography of the abdomen and pelvis without contrast. COMPARISON: CT RENAL COLIC WO 05/26/2023 11:10 FINDINGS: Diaphragm: Hiatal hernia. Liver: Hepatic steatosis. Gallbladder and biliary ducts: Distended gallbladder. Pancreas: Normal. No ductal dilation. Spleen: Normal. No splenomegaly. Adrenal glands: Normal. No mass. Kidneys and ureters: 0.8 cm and 0.4 cm proximal right ureteral stones with right hydronephrosis and proximal hydroureter. Bilateral punctate renal calculi. Infiltration of the right perirenal fat and proximal right ureter. There is no left hydronephrosis. Stomach and bowel: Scattered diverticuli without CT evidence of diverticulitis. Normal caliber small bowel. Appendix: No evidence of appendicitis. Intraperitoneal space: Unremarkable. No free air. No significant fluid collection. Vasculature: Unremarkable. No abdominal aortic aneurysm. Lymph nodes: Unremarkable. No enlarged lymph nodes. Urinary bladder: Contracted bladder. Reproductive: Prostate calcifications. Bones/joints: Unremarkable. No acute fracture. Soft tissues: Small umbilical hernia. Sat distension of the right inguinal canal. IMPRESSION: 1. Right hydroureteronephrosis secondary to proximal ureteral stones 2. Additional findings as discussed above. Dictated and Authenticated by: Whitney Jha MD. Ordering:DERRICK Ortiz MD
[2023-12-21 14:09] VITALS: BP 156/96; PULSE 69; RESP 16; O2SAT 97
== END 2023-12-21 14:37 | disposition home or self-care (01) ==
PROVIDERS: Emergency Provider Registered Nurse Emergency
DX: N13.2 Hydronephrosis with renal and ureteral calculous obstruction (principal); F17.210 Nicotine dependence, cigarettes, uncomplicated
CPT/HCPCS: 80053; 96374; 96375; 96376; 99284; 74176; 81003; 81015; 85025; J1885; J2270; J2405

== ENCOUNTER 2023-12-30 07:00 | Day surgery (SDC) | payer SELFPAY ==
[2023-12-30] VITALS (22 sets, daily range): BP systolic 96–132; BP diastolic 65–97; PULSE 61–99; RESP 11–18; TEMP 26.8–36.8; O2SAT 92–99; BMI 29.9
[2023-12-30] MEDS: Lactated Ringers 1,000 ML 80 ML IV (07:45)
--- NOTE | 2023-12-30 08:06 | ANES.PREOP_ITS ---
General Info Date of Service Date Performed: 12/30/23 Height: 5 ft 9 in Weight: 92 kg Body Mass Index (BMI): 29.9 Surgical Procedure: Operation Date: 12/30/23 08:55 Proposed Procedure Side Surgeon p Cystoscopy/Laser/Retrograde/Ureteroscopy/Possible Stent Right David Warren MD Meds Allergies and Home Medications Allergies Allergy/AdvReac Type Severity Reaction Status Date / Time egg yolk AdvReac Anaphylaxis Verified 12/26/23 13:44 peanuts AdvReac Severe Anaphylaxis Uncoded 12/26/23 13:44 Home Medication ?Medication ?Instructions ?Recorded esomeprazole magnesium 40 mg 40 mg PO DAILY 02/15/22 capsule,delayed release (Nexium) montelukast 10 mg tablet 10 mg PO DAILY 02/15/22 (Singulair) naproxen sodium 220 mg capsule 220 mg PO BID PRN 02/15/22 (Aleve) albuterol 90 mcg-budesonide 80 2 inh inhalation TID PRN 01/11/23 mcg/actuation HFA aerosol inhaler tamsulosin 0.4 mg capsule (Flomax) 0.4 mg PO DAILY #30 caps 12/19/23 hydrocodone 5 mg-acetaminophen 325 1 tab PO Q6H PRN pain #20 tabs 12/24/23 mg tablet prochlorperazine maleate 5 mg 5 mg PO ONCE PRN 12/24/23 tablet Current Visit Medications: Current Medications Generic Name Dose Route Start Last Admin Trade Name Freq PRN Reason Stop Dose Admin Ringer's Solution 1,000 mls @ 80 mls/hr 12/30/23 06:00 12/30/23 07:45 IV 01/26/24 23:59 80 mls/hr INFUSION AMBER Administration Cefazolin Sodium/Dextrose 2 gm in 50 mls @ 100 mls/hr 12/30/23 06:00 Ancef Duplex IVPB 12/30/23 16:00 PREOP AMBER IV Miscellaneous Supplies 1 each 12/30/23 06:00 Iv Access IV 01/26/24 23:59 DIRECTED AMBER Sodium Chloride 0 ml 12/30/23 06:00 Normal Saline Flush 10 Ml Syr IV 01/26/24 23:59 PRN PRN Sodium Chloride 0 ml 12/30/23 06:00 Normal Saline 10 Ml Vial IJ 01/26/24 23:59 DIRECTED PRN Sterile Water 0 ml 10/14/24 06:00 Water,Injection,Sterile 10 Ml Vial IJ 01/26/24 23:59 DIRECTED PRN PFSH Active Problems Active Problems: Problem Status Onset Code Ureteral calculus, right Acute N20.1 Seizure Acute R56.9 Medical History Medical History Asthma GERD (gastroesophageal reflux disease) Back pain Surgical History Surgical History No pertinent past surgical history Tobacco Smoking/Tobacco Use Status: Current every day Tobacco Type: e-cigarettes Alcohol Alcohol Intake: current Alcohol intake frequency: a few times a month Alcohol type: wine Substance Use Substance use: Current Sobriety Substance use type: former substance user Vital Signs and Lab Results Vital Signs Most Recent Vital Signs in EMR: Most Recent Vital Signs Temp Pulse Resp BP Pulse Ox 36.8 C 99 H 16 132/97 H 98 12/30/23 07:33 12/30/23 07:33 12/30/23 07:33 12/30/23 07:33 12/30/23 07:33 Lab Results Blood Type / Crossmatch: No Data to Display Complete Blood Count: White Blood Count 10.55 10^3/uL (4.4-10.8) 12/21/23 12:23 Red Blood Count 5.08 10^6/uL (4.36-5.78) 12/21/23 12:23 Hemoglobin 16.1 g/dL (13.5-17.5) 12/21/23 12:23 Hematocrit 46.5 % (40.0-50.0) 12/21/23 12:23 Platelet Count 211 10^3/uL (130-400) 12/21/23 12:23 Complete Metabolic Panel: Sodium 139 mmol/L (136-145) 12/21/23 12:23 Potassium 3.9 mmol/L (3.5-5.1) 12/21/23 12:23 Chloride 104 mmol/L (98-107) 12/21/23 12:23 Carbon Dioxide 31.1 mmol/L (21.0-32.0) 12/21/23 12:23 BUN 11 mg/dL (7-18) 12/21/23 12:23 Creatinine 1.2 mg/dL (0.70-1.30) 12/21/23 12:23 Est GFR (CKD-EPI 2020) 80.38 (mL/min/1.73m2) 12/21/23 12:23 Magnesium 1.9 mg/dL (1.8-2.4) 12/19/23 10:25 Calcium 9.4 mg/dL (8.5-10.1) 12/21/23 12:23 Albumin 4.1 g/dL (3.4-5.0) 12/21/23 12:23 Glucose 112 mg/dL (74-106) H 12/21/23 12:23 Liver Function Panel: Alanine Aminotransferase (ALT/SGPT) 48 U/L (16-63) 12/21/23 12: 23 Aspartate Amino Transf (AST/SGOT) 18 U/L (15-37) 12/21/23 12:23 Coagulation Panel: No Data to Display Cardiac Panel: No Data to Display Arterial Blood Gas: No Data to Display Venous Blood Gas: No Data to Display Pancreas Panel: Lipase 34 U/L (16-77) 12/19/23 10:25 Thyroid Panel: No Data to Display Infectious Disease: No Data to Display Blood Cultures: No Data to Display Toxicology Panel: No Data to Display Imaging and Studies Imaging and Studies Study information below may be from another EMR and interpreted by another provider. Please see original notes in EMR for more complete details. EKG Summary: 02/06: sinus. Anesthesia Assessment and Plan Anesthesia History Personal History: No History of General Anesthesia Family History: No Family History of Anesthesia Complications Exercise Tolerance Exercise Tolerance: Metabolic Equivalents>4 Cardiac & Pulmonary Exam Cardiac Exam: Normal S1/S2 Heart Sounds Pulmonary Exam: Clear Bilateral Breath Sounds Implantable Cardiac Device Does patient have a Pacemaker or an ICD?: No Airway Exam Known Difficult Airway: No Mallampati Class: 3 Mouth Opening: Narrow (< 3cm) Thyromental Distance: Greater than 3 cm Neck Range of Motion: Full ROM Neck Circumference: Normal Teeth Condition: Normal Dentition ASA Classification ASA Score: ASA 2 Emergency Case?: No NPO Status NPO Status: NPO Clears >2 hours, Solids >8 hours Anesthesia Plan Resuscitation Status: Full Code Anesthesia Technique: General Anesthesia Airway Planned: LMA Monitors Used: Standard Monitors Preoperative Comments:: 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 He has not had any NSAID/acetaminophen for the last few days, his pain is fair currently. Sig PMHx: Asthma (exercise induced, does not use her rescue on the regular. breathing feels good today), GERD (well controlled on esomeprazole. Denies reflux issues as long as he is taking it. feels fine today), seizures (on history, but seems that it was associated with smoking cannabis once, unlikely actually seizure). e-cig. Appropriately NPO, currently hungry.
--- NOTE | 2023-12-30 08:07 | W.PM.HP.N ---
Date of service: 12/30/23 Time of Service: 08:08 Assessment and Plan Assessment and plan (1) Ureteral calculus, right: Status: Acute Assessment and plan: Will proceed with cystoscopy, right retrograde pyelogram and right ureteroscopy with holmium laser lithotripsy of his stones. If we are unable to pass the ureteroscope up to the stones, we may need to place a ureteral stent and do a staged procedure with a planned return trip to the operating room. History of Present Illness History of Present Illness Chief Complaint: Right ureteral stones Narrative: This is a 38-year-old gentleman who has a past history of kidney stones. He recalls his first episode of renal colic back in 2019. He had significant pain that lasted about an hour then resolved on its own. He did not pass a stone at that time. About 6 months later he had a similar episode that again resolved. He passed 2 stones spontaneously in the past year or so. He has had no significant pain until recently. He presented to the emergency department with severe right flank pain and nausea. He was evaluated with a CT scan and he was found to have 2 proximal right ureteral stones. His urine did not appear to be infected. He was discharged but returned to the emergency room about 2 days later with a recurrent episode of pain. He was again evaluated with a CT and his stones had not migrated distally whatsoever. Since then, he has had more of a continuous dull ache with intermittent episodes of sharp pain. 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 He has no known family history of kidney stones. He has no personal history of hyper parathyroidism or gout. Review of Systems Narrative: No fevers or chills No vision change or dysphasia No diabetes or thyroid dysfunction Exercise induced asthma. No shortness of breath, cough or hemoptysis No chest pain or palpitations Hx GERD. No hepatitis, ulcers, jaundice, diarrhea or constipation No seizures, strokes or peripheral neuropathy No bleeding disorders or anemia No gout PFSH All Active Problems Ureteral calculus, right (Acute) Seizure (Acute) Medical History Asthma GERD (gastroesophageal reflux disease) Back pain Surgical History No pertinent past surgical history Family History Father Hypertension Mother Hypertension Social History Smoking/Tobacco Use Status: Current every day Tobacco Type: e-cigarettes Tobacco: How many years used: 10 Smoking risk assessment performed?: Yes Alcohol Intake: current Alcohol Intake frequency: a few times a month Alcohol type: wine Drug use: Current Sobriety Substance use type: former substance user Household members: none Housing: house Number of Children: 0 current occupation: Travel Nurse Do you feel safe at home: Yes Do you feel safe in your relationship?: Yes Meds Allergies and Home Medications Allergies Allergy/AdvReac Type Severity Reaction Status Date / Time egg yolk AdvReac Anaphylaxis Verified 12/26/23 13:44 peanuts AdvReac Severe Anaphylaxis Uncoded 12/26/23 13:44 Home Medications ?Medication ?Instructions ?Recorded ?Confirmed ?Type esomeprazole magnesium 40 mg 40 mg PO DAILY 02/15/22 12/30/23 History capsule,delayed release (Nexium) montelukast 10 mg tablet 10 mg PO DAILY 02/15/22 12/30/23 History (Singulair) naproxen sodium 220 mg capsule 220 mg PO BID PRN 02/15/22 12/30/23 History (Aleve) albuterol 90 mcg-budesonide 80 2 inh inhalation TID PRN 01/11/23 12/30/23 History mcg/actuation HFA aerosol inhaler tamsulosin 0.4 mg capsule (Flomax) 0.4 mg PO DAILY #30 caps 12/19/23 12/30/23 Rx hydrocodone 5 mg-acetaminophen 325 1 tab PO Q6H PRN pain #20 tabs 12/24/23 12/30/23 Rx mg tablet prochlorperazine maleate 5 mg 5 mg PO ONCE PRN 12/24/23 12/26/23 History tablet Exam Const General: cooperative Neck Neck: supple Resp Effort & Inspection: normal respiratory effort Auscultation: clear to auscultation bilaterally Cardio Rate: regular rate Rhythm: regular rhythm GI Palpation: soft and no masses Neuro General: patient alert, patient awake and patient oriented x3 Results Last Vital Signs Temp 36.8 C 12/30/23 07:33 Pulse 99 H 12/30/23 07:33 Resp 16 12/30/23 07:33 BP 132/97 H 12/30/23 07:33 Pulse Ox 98 12/30/23 07:33 Time Spent Time spent with Patient: <40 minutes Time was spent: other
[2023-12-30] MEDS: ceFAZolin 2 GM/50 ML BAG IVPB (08:44)
[2023-12-30] MEDS: Lidocaine 2% Jelly 6 ML SYR (09:09)
[2023-12-30] MEDS: Omnipaque 300 MG/ML 50 ML BTL (10:18)
--- NOTE | 2023-12-30 10:24 | DI.RAD_ITS ---
Exam(s) XR RETROGRADE IN OR EXAM: XR RETROGRADE IN OR CLINICAL HISTORY: Ureteral calculus, right: TECHNIQUE: 2D and realtime digital imaging was performed. CONTRAST MATERIAL: Refer to procedure report. COMPARISON: CT CT ABDOMEN PELVIS WO from 12/21/2023 FINDINGS: Fluoroscopy was provided for Dr. Warren during the performance of a retrograde evaluation of the alpa l collecting system. Please refer to the procedure report for complete details. Ka,r=6.83 mGy IMPRESSION: RADIATION DOSE DELIVERED: 0.0 0.0 0
--- NOTE | 2023-12-30 10:27 | W.PM.DSUDISC ---
Date of service: 12/30/23 Time of Service: 10:27 Discharge Plan Disposition Patient Disposition: Home Discharge Details Reason For Visit: right ureteral stones Attending Provider: David Warren Home Meds and New Rx's Prescriptions: No Action esomeprazole magnesium [Nexium] 40 mg capsule,delayed release(DR/EC) 40 mg PO DAILY montelukast [Singulair] 10 mg tablet 10 mg PO DAILY naproxen sodium [Aleve] 220 mg capsule 220 mg PO BID PRN albuterol-budesonide 90-80 mcg/actuation HFA aerosol inhaler 2 inh inhalation TID PRN Rx Instructions: as a single dose; may repeat up to 6 doses per day (12 inhalations) prochlorperazine maleate 5 mg tablet 5 mg PO ONCE PRN hydrocodone-acetaminophen 5-325 mg tablet 1 tab PO Q6H MDD 4 PRN (Reason: pain) Qty: 20 0RF tamsulosin [Flomax] 0.4 mg capsule 0.4 mg PO DAILY Qty: 30 0RF Discharge Instructions Additional Instructions: followup 3 to 7 days for stent removal - tell my office that there is a string on pt's stent additional followup appt 6 to 8 weeks for renal US (can be done in office) You have a stent in your right ureter temporarily until the swelling caused by your surgery decreases. While the stent is in place, it is not unusual to see blood in your urine or feel the need to urinate more frequently. There may also be some pain when you urinate. All of the symptoms should improve within a week after the stent is removed. There is no need to strain your urine as we have many pieces of stone available to send to the lab. Discharge Orders Discharge Orders: Discharge Order (Routine); Ordered 12/30/23 Ordered By: David Warren DS: Diagnosis Discharge Diagnosis (1) Ureteral calculus, right: Status: Acute
--- NOTE | 2023-12-30 10:34 | ROE_ITS ---
Date of service: 12/30/23 Time of Service: 10:34 Operative Note Operative Note DATE OF PROCEDURE: 12/30/23 PRE-OP DIAGNOSIS: Right ureteral stones PROCEDURE: cystoscopy, right retrograde pyelogram, right ureteroscopy with holmium laser lithotripsy of stones, stone extraction, insert right ureteral stent SURGEON: David Warren ANESTHESIA TYPE: Local By Surgeon and General LMA/ETT Refer to Anesthesia Record ESTIMATED BLOOD LOSS: 5 PATHOLOGY: other (stones for chemical analysis) COMPLICATIONS: None Patient was transported to: PACU Patient's condition: stable Implants: 6 [place] by 22 to 30 cm right ureteral stent (with safety string attached) Indications: This is a 38-year-old gentleman who has a past history of kidney stones. He presented to our emergency department with right renal colic. His initial CT demonstrated to proximal right ureteral stones that were causing obstruction. He had a return visit to the emergency department a few days later for recurrent symptoms. A repeat CT scan showed no progression of his stones. He presents now for stone manipulation Findings: Right proximal ureteral stones Procedure Description: The patient was given IV antibiotics and brought to the operating room on 12/30/2023. After successful induction of general anesthesia, he was placed in the dorsal lithotomy position. His genitalia was prepped and draped. 2% Xylocaine jelly was instilled into the urethra to act as a local anesthetic. A 22 [place] rigid cystoscope was passed through the urethra into the bladder. The urethra and bladder were inspected with the 30 degree lens. The pendulous, bulbar and membranous urethra appeared normal with no strictures. The prostatic urethra showed no significant lateral lobe enlargement. The bladder neck was entered and the bladder mucosa was inspected. The right u reteral orifice was visualized. No blood was seen coming from the right side. The left side likewise appeared normal. There were no papillary or nodular lesions scattered throughout the bladder. The right ureteral orifice was then cannulated with a 5 [place] access catheter. A retrograde pyelogram was obtained by injecting Omnipaque through the access catheter under fluoroscopic guidance. A radio opaque filling defect was identified in the right proximal ureter. We then passed a guidewire through the lumen of the access catheter and removed the catheter leaving the wire in place. A dual-lumen catheter was then advanced over the wire and a second wire was positioned. We chose one of the wires as a working wire and the other as a safety wire. A ureteral access sheath was advanced over the working wire leaving the safety wire in place. Flexible ureteroscopy was then performed and 2 stones were visualized in the proximal ureter. The stones were then treated with a 272 ?m holmium laser fiber. We used a combination of dusting settings along with fragmentation settings. Multiple stone fragments were grasped and a 0 tip stone basket and removed. The stone fragments were sent to pathology for chemical analysis. During our fragmentation, the stone actually migrated back up into the renal pelvis where it was additionally treated. Once all large stone fragments had been removed, we removed the ureteroscope and access sheath. We passed a 6 [place] variable length stent over the safety wire. The stent was positioned with the proximal and curled in the renal pelvis and the distal end curled within the bladder. The safety string was left in place and brought through the urethra where the string was anchored to the dorsum of the penis. The patient tolerated this procedure well with no complications. He was taken to the recovery room in stable condition.
[2023-12-30] MEDS: Phenazopyridine 200 MG TAB PO (11:37)
--- NOTE | 2023-12-30 11:53 | W.ANESPOSTOP ---
Postoperative Evaluation Date, Time and Location Date Performed: 12/30/23 Time Performed: 11:50 Patient Location: Day Surgery Unit Vital Signs Most Recent Imported Vital Signs: Most Recent Vital Signs Temp Pulse Resp BP Pulse Ox 36.7 C 61 18 121/89 95 12/30/23 11:20 12/30/23 11:20 12/30/23 11:20 12/30/23 11:20 12/30/23 11:20 Pain Score Most Recent Pain Score: Most Recent Pain Score Pain Level 5 12/30/23 11:20 Assessment Mental Status: Awake (Alert & Oriented to Patient Baseline) Airway and Respiratory Function: Patent airway with normal (patient baseline) respiratory exam Cardiovascular Function: Hemodynamically Stable Hydration Status: Adequately Hydrated Nausea & Vomiting: No Nausea or Vomiting Pain: Pain is Moderate or Severe Postoperative Pain Management: Pain being addressed with medication (Reports burning sensation associated with stent) Peripheral Nerve Block: Patient did not receive a nerve block
[2023-12-30] MEDS: HYDROcodone 5/Acetaminophen 325 TAB PO (12:20)
[2024-01-07 23:04] LABS: Source: Ureter
== END 2023-12-30 12:40 | disposition home or self-care (01) ==
PROVIDERS: Visit Provider Urology
PROC: (CPT 52356; principal; 2023-12-30 08:45)
DX: N20.1 Calculus of ureter (principal)
CPT/HCPCS: 52356; 74420; 82365; J0131; J0690; J1100; J1171; J1805; J1885; J1920; J2003; J2250; J2405; J2704; J3010; Q9967